=== PATIENT | male | born 1980 | race Two or more races ===

== ENCOUNTER 2024-03-31 20:58 | Emergency (ER) | payer SELFPAY ==
[~2024-03-31] VITALS: Ht 182.9 cm; Wt 100.0 kg
[2024-03-31 20:58] VITALS: BP 140/83; PULSE 78; RESP 16; O2SAT 99
== END 2024-04-01 | disposition left against medical advice (07) ==
LOC: EDBD 20:58 → ER 20:58
DX: T78.49XA Other allergy, initial encounter (principal); Z53.21 Procedure and treatment not carried out due to patient leaving prior to being seen by health care provider; X58.XXXA Exposure to other specified factors, initial encounter